=== PATIENT | male | born 1990 ===

== ENCOUNTER 2024-09-20 01:22 | Inpatient (IN) | payer OTHER, SELFPAY ==
[2024-09-19 22:26] VITALS: BP 128/90
[2024-09-19 22:37] VITALS: BP 136/78
--- NOTE | 2024-09-19 22:43 | ED.GENMED ---
History of Present Illness
<ROSA Pate - Last Filed: 09/20/24 02:00>
General
Chief Complaint: Chest Pain
Source: patient
Exam Limitations: none
Time Seen by Provider: 09/19/24 22:31
History of Present Illness
History of Present Illness:
This is a 34 year old male that comes in with c/o chest pain. States that 2 weeks ago he had this tightness in his chest. States that this lasted for hours and then went away. States that last night he had some chest discomfort but he fell asleep.
Then today he was watching the [employer] game and he started to feel tightness in his chest that went up to his shoulder and back. States that there is a tightness now that is a 2/10. States that it almost feels musculoskeletal. States that in the past
6 months he gets dizzy when running up the steps when he reaches the top. Denies any fever, chills, SOB, cough, abd pain, nausea, vomiting, diarrhea, headache, dizziness, urinary burning.
Past History
<ROSA Pate - Last Filed: 09/20/24 02:00>
Past History
ED Past Medical History: None; Negative Asthma, HTN, Hypercholesterolemia or NIDDM
ED Past Surgical History: Orthopedic (Left ACL and Meniscus repair, ) and Tonsilectomy
Social History
Tobacco: Other (Cigar occasionally)
Alcohol: Occasional
Drug: Marijuana (once or twice a year)
Personal:
Living: with family
Review of Systems
<ROSA Pate - Last Filed: 09/20/24 02:00>
Review of Systems
All Other Systems: ROS reviewed and negative except as documented in HPI and ROS
Constitutional: Reports no symptoms; Denies fever or chills
EENT: Reports no symptoms
Respiratory: Reports no symptoms; Denies cough or trouble breathing
Cardiac: Reports chest pain
ABD/GI: Reports no symptoms; Denies abdominal pain, nausea, vomiting or diarrhea
: Reports no symptoms; Denies dysuria, frequency or urgency
Musculoskeletal: Reports no symptoms
Skin: Reports no symptoms
Neurological: Denies dizzy or headache
Psychiatric: Reports no symptoms
Phy Exam
<ROSA Pate - Last Filed: 09/20/24 02:00>
General Physical Exam
General Presentation: well appearing and no apparent distress
General age: appears stated age
General Skin: warm and dry
General Habitus: normal
General Mental: alert
General Hydration: appears well hydrated
ENT Exam
ENT Exam: TM's normal, pharynx normal and neck supple
Eye Exam
Eye Exam: EOMI
Cardiovascular Exam
Cardiovascular Exam: regular rate/rhythm, no edema, no murmur and normal peripheral pulses
Pulmonary Exam
Pulmonary Exam: lungs clear, no respiratory distress, no rales, chest non tender, no crackles, no rhonchi, no wheezing and no cough
Gastrointestinal Exam
Gastrointestinal Exam: normal bowel sounds, soft, no organomegaly, no pulsatile mass, non distended and tender (Slight RUQ tenderness only with palpation)
Musculoskeletal Exam
Musculoskeletal Exam: full ROM and no edema
Skin Exam
Skin Exam: normal color, warm/dry, no rash and no petechia
Psychiatric Exam
Psychiatric Exam: normal mood/affect
Scores
<ROSA Pate - Last Filed: 09/20/24 02:00>
Heart Score for Chest Pain Patients
STEMI patient?: No
History: Moderately Suspicious
ECG: Normal
Age: </= 45 years
Risk Factors: No Risk Factors
Troponin: >1 - <3 x Normal Limit
Heart Score for Chest Pain Patients: 2
Heart Score Risk: 2.5% MACE over next 6 weeks
<Julianne Alcantar MD - Last Filed: 09/20/24 01:36>
Heart Score for Chest Pain Patients
Heart Score for Chest Pain Patients: 2
Heart Score Risk: 2.5% MACE over next 6 weeks
Course
<ROSA Pate - Last Filed: 09/20/24 02:00>
Orders/Labs/Results
Orders:
Orders
09/19/24 22:23
Electrocardiogram (*1) Urgent
Reason for Study: Chest Pain
EKG- Treatment ONCE
09/19/24 22:41
Aspirin Chewable [Low Strength Aspirin] 324 mg PO NOW STA
CR Chest - 2 Views Urgent
Comment:
Reason For Exam: Chest pain
09/19/24 23:06
EKG- Treatment ONCE
09/19/24 23:11
Complete Blood Count/With Diff Urgent
Comprehensive Metabolic Panel Urgent
Troponin I Urgent
09/19/24 23:55
Nitroglycerin Sublingual [Nitrostat (Sublingual)] 0.4 mg SL [id number] PRN
09/20/24 00:23
Heparin 4,000 units IV NOW STA
Nursing to Place Non Medication Order As Directed
Physician Order: PTT 6 hours after initial start of Heparin infusion
09/20/24 00:29
PTT Urgent
Comment: Obtain baseline before beginning heparin infusion if not already collected
09/20/24 00:30
Heparin 90687 Units/250 ml 25,000 units in 250 ml IV PER PROTOCOL
Weight to be used for heparin protocol in kilograms (kg):: 82.8
Protocol:: Cardiac Tx/Acute Coronary
PTT Goal Range to be used:: PTT 73 to 111 seconds
Order type:: Initial
INITIAL Infusion Dose (UNITS/KG/hr) & then follow protocol:: 15 units/kg/hr
Infusion Dose in UNITS/hr & then follow protocol (UNITS/hr):: 1,250
INFUSION RATE in mL/hr & then follow protocol (mL/hr):: 12.5
PTT less than or equal to 64 seconds:: Increase rate by 200 units/hr (+ 2 mL/hr)
PTT 64.1 to 72.9 seconds:: Increase rate by 100 units/hr (+ 1 mL/hr)
PTT 73 to 111 seconds:: Target Range. No change in rate.
PTT 111.1 to 130.9 seconds:: Decrease rate by 100 units/hr (- 1 mL/hr)
PTT 131 to 199.9 seconds:: HOLD for 1 hr. Then decrease rate by 200 units/hr (- 2 mL/hr)
PTT greater than or equal to 200 seconds:: HOLD for 2 hrs & Notify Provider. Then decrease by 200 units/hr (-
2 mL/hr)
Lab follow-up:: Each change, PTT q6h until 2 consecutive are therapeutic. Then PTT
daily.
09/20/24 00:47
Consult Cardiology [CARDIOLOGY CONSULT] Urgent
Consulting Provider: Arnold Meyer
Was physician already notified: Yes
09/20/24 00:51
Nitroglycerin 100 mg/250 ml [Nitroglycerin Premix] 100 mg in 250 ml IV NOW
Initial dose in mcg/min, then titrate:: 5
Titrate to keep:: Chest Pain Free
Titrate by mcg/min:: 5 mcg/min, may increase by 10 mcg/min if dose > 20 mcg/min
Frequency of titrations (minutes):: every 3-5 minutes
Maximum dose in mcg/min:: 200
Begin to taper infusion when:: Remained at goal for 2hrs
Taper by mcg/min:: 5 mcg/min
Frequency of taper (minutes) if patient maintains goal:: 30
Taper to off?: Yes
If infusion off & no longer maintaining goal:: Contact Provider
09/20/24 01:00
Flush (0.9% Sodium Chloride) [Flush (Nss)] See Dose Instructions IV PER PROTOCOL
09/20/24 01:11
Admit/Transfer Patient As Directed
Co-Sign Provider:
Level of Care: Inpatient admission
Assign to:: IVU
Physician / Group: hospitalist
Diagnosis: NSTEMI
Reason for Hospitalization: Chest pain w/NSTEMI
Expected length of stay greater than two midnights?: Yes
ELOS- Estimated Length of Stay in days: 2
I certify the patient meets the requirements for IP care: Yes
PRN Pain Medication Management As Directed
May give lesser potent ordered pain med per pt: Yes
preference::
Protocol:: Medication orders for pain may be administered in a
manner that supports deferring to patient preference
when the pt is:
- Requesting an ordered lesser potent pain medication.
Least to most potent pain medications are defined
as: acetaminophen < NSAID < tramadol < opioids
(morphine, oxycodone, hydromorphone).
- Requesting a lesser dose of the same medication IF
ORDERED.
- Requesting a less intrusive route of administration
if both routes are prescribed by the provider (PO <
IV).
09/20/24 01:13
Code Status As Directed
Resuscitation Status: Full Code
09/20/24 01:15
Troponin I Urgent
09/20/24 01:20
Electrocardiogram (*1) Urgent
Reason for Study: Chest Pain
Other Reason for Exam: Repeat with Troponin
09/20/24 01:53
Acetaminophen [Tylenol] 650 mg PO Q6HPRN PRN
Ondansetron Injectable [Zofran] 4 mg IV Q6HPRN PRN
09/20/24 01:53
Echo 2D MMode Color/Doppler Routine
Reason for Study: chest pain
VTE Contraindication Routine
VTE Mechanical Device Contraindication: Medical Contraindication
Pharmocologic Contraindication: Medical Contraindication
Heparin Protocol- PTT Orders As Directed
PTT per Heparin protocol: -Obtain CBC and baseline PTT - if not already collected.
-Obtain PTT 6 hours from start of infusion. Then, every 6 hours until 2 consecutive
PTT's are therapeutic. Then, PTT Daily.
-With each rate change, obtain PTT every 6 hours until 2 consecutive PTT's are
therapeutic. Then, PTT Daily.
Activity As Directed
Activity Level: With Assistance
INT (Intravenous Needle Therapy) As Directed
Comment: maintain peripheral IV access
Intake/ Output As Directed
Frequency: Per unit guidelines
Notify MD As Directed
Notify physician if: PTT is greater than or equal to 200.
Vital Signs As Directed
Frequency: q4h
Weight As Directed
Frequency: Once
O2 Therapy [RESP] Routine
Nasal Cannula Liter Flow: 2 LPM
Titrate/Wean O2 to maintain O2 sat greater than (%): 90
Special Instructions: 2 liters/minute as needed for pulse oximetry less than 90%
Pulse Ox/spot Check [RESP] Routine
Quantity: 1
Special Instructions: on admission and then every shift if on oxygen
09/20/24 04:00
Electrocardiogram (*1) Q3H
Reason for Study: Chest Pain
Comment: at admission and Q3H for total of 3, to be done with each troponin
Troponin I Q3H
Comment: at admit & Q3H for 3 total including ED draws, obtain ECG with each level
09/20/24 Breakfast
NPO
Allow oral meds: Yes
Allow clear liquids: Sips of Clears
Basic Metabolic Panel IN AM
Cardiovascular Evaluation IN AM
Glycohemoglobin (HgbA1c) IN AM
09/20/24 07:00
Electrocardiogram (*1) Q3H
Reason for Study: Chest Pain
Comment: at admission and Q3H for total of 3, to be done with each troponin
Troponin I Q3H
Comment: at admit & Q3H for 3 total including ED draws, obtain ECG with each level
09/20/24 10:00
Electrocardiogram (*1) Q3H
Reason for Study: Chest Pain
Comment: at admission and Q3H for total of 3, to be done with each troponin
09/20/24 13:00
Electrocardiogram (*1) Q3H
Reason for Study: Chest Pain
Comment: at admission and Q3H for total of 3, to be done with each troponin
09/20/24 16:00
Electrocardiogram (*1) Q3H
Reason for Study: Chest Pain
Comment: at admission and Q3H for total of 3, to be done with each troponin
09/20/24 19:00
Electrocardiogram (*1) Q3H
Reason for Study: Chest Pain
Comment: at admission and Q3H for total of 3, to be done with each troponin
09/20/24 22:00
Electrocardiogram (*1) Q3H
Reason for Study: Chest Pain
Comment: at admission and Q3H for total of 3, to be done with each troponin
09/22/24 06:00
Complete Blood Count/No Diff Q2D
Comment: notify provider: Platelet count < 130,000 or decrease by 50% from baseline
09/24/24 06:00
Complete Blood Count/No Diff Q2D
Comment: notify provider: Platelet count < 130,000 or decrease by 50% from baseline
09/26/24 06:00
Complete Blood Count/No Diff Q2D
Comment: notify provider: Platelet count < 130,000 or decrease by 50% from baseline
09/28/24 06:00
Complete Blood Count/No Diff Q2D
Comment: notify provider: Platelet count < 130,000 or decrease by 50% from baseline
09/30/24 06:00
Complete Blood Count/No Diff Q2D
Comment: notify provider: Platelet count < 130,000 or decrease by 50% from baseline
10/02/24 06:00
Complete Blood Count/No Diff Q2D
Comment: notify provider: Platelet count < 130,000 or decrease by 50% from baseline
10/04/24 06:00
Complete Blood Count/No Diff Q2D
Comment: notify provider: Platelet count < 130,000 or decrease by 50% from baseline
10/06/24 06:00
Complete Blood Count/No Diff Q2D
Comment: notify provider: Platelet count < 130,000 or decrease by 50% from baseline
Abnormal Lab Results
09/19/24 09/20/24
23:11 01:15
MCH 26.5 L pg
(27.0-31.0)
MCHC 32.4 L g/dL
(33.0-37.0)
BUN 21 H mg/dl
(9-20)
Glucose 109 H mg/dl
(70-99)
Troponin I 0.038 H* ng/ml 0.038 H* ng/ml
09/19/24 23:11
09/19/24 23:11
Very slight Dehydration. glucose nonfasting. Troponin elevated 0.038,
Repeat Troponin 0.038, PTT 31.6
Vital Signs
Initial and Last Documented VS:
Initial Vital Signs
Temp Pulse Resp BP Pulse Ox
98.1 F 72 18 128/90 98
09/19/24 22:26 09/19/24 22:26 09/19/24 22:26 09/19/24 22:26 09/19/24 22:26
Last Documented Vital Signs
Temp Pulse Resp BP Pulse Ox
98.1 F 69 15 117/83 99
09/19/24 22:26 09/20/24 01:30 09/20/24 01:30 09/20/24 01:30 09/20/24 01:30
<Julianne Alcantar MD - Last Filed: 09/20/24 01:36>
Orders/Labs/Results
Orders:
Orders
09/19/24 22:23
Electrocardiogram (*1) Urgent
Reason for Study: Chest Pain
EKG- Treatment ONCE
09/19/24 22:41
Aspirin Chewable [Low Strength Aspirin] 324 mg PO NOW STA
CR Chest - 2 Views Urgent
Comment:
Reason For Exam: Chest pain
09/19/24 23:06
EKG- Treatment ONCE
09/19/24 23:11
Complete Blood Count/With Diff Urgent
Comprehensive Metabolic Panel Urgent
Troponin I Urgent
09/19/24 23:55
Nitroglycerin Sublingual [Nitrostat (Sublingual)] 0.4 mg SL [id number] PRN
09/20/24 00:23
Heparin 4,000 units IV NOW STA
Nursing to Place Non Medication Order As Directed
Physician Order: PTT 6 hours after initial start of Heparin infusion
09/20/24 00:29
PTT Urgent
Comment: Obtain baseline before beginning heparin infusion if not already collected
09/20/24 00:30
Heparin 73410 Units/250 ml 25,000 units in 250 ml IV PER PROTOCOL
Weight to be used for heparin protocol in kilograms (kg):: 82.8
Protocol:: Cardiac Tx/Acute Coronary
PTT Goal Range to be used:: PTT 73 to 111 seconds
Order type:: Initial
INITIAL Infusion Dose (UNITS/KG/hr) & then follow protocol:: 15 units/kg/hr
Infusion Dose in UNITS/hr & then follow protocol (UNITS/hr):: 1,250
INFUSION RATE in mL/hr & then follow protocol (mL/hr):: 12.5
PTT less than or equal to 64 seconds:: Increase rate by 200 units/hr (+ 2 mL/hr)
PTT 64.1 to 72.9 seconds:: Increase rate by 100 units/hr (+ 1 mL/hr)
PTT 73 to 111 seconds:: Target Range. No change in rate.
PTT 111.1 to 130.9 seconds:: Decrease rate by 100 units/hr (- 1 mL/hr)
PTT 131 to 199.9 seconds:: HOLD for 1 hr. Then decrease rate by 200 units/hr (- 2 mL/hr)
PTT greater than or equal to 200 seconds:: HOLD for 2 hrs & Notify Provider. Then decrease by 200 units/hr (-
2 mL/hr)
Lab follow-up:: Each change, PTT q6h until 2 consecutive are therapeutic. Then PTT
daily.
09/20/24 00:47
Consult Cardiology [CARDIOLOGY CONSULT] Urgent
Consulting Provider: Arnold Meyer
Was physician already notified: Yes
09/20/24 00:51
Nitroglycerin 100 mg/250 ml [Nitroglycerin Premix] 100 mg in 250 ml IV NOW
Initial dose in mcg/min, then titrate:: 5
Titrate to keep:: Chest Pain Free
Titrate by mcg/min:: 5 mcg/min, may increase by 10 mcg/min if dose > 20 mcg/min
Frequency of titrations (minutes):: every 3-5 minutes
Maximum dose in mcg/min:: 200
Begin to taper infusion when:: Remained at goal for 2hrs
Taper by mcg/min:: 5 mcg/min
Frequency of taper (minutes) if patient maintains goal:: 30
Taper to off?: Yes
If infusion off & no longer maintaining goal:: Contact Provider
09/20/24 01:00
Flush (0.9% Sodium Chloride) [Flush (Nss)] See Dose Instructions IV PER PROTOCOL
09/20/24 01:11
Admit/Transfer Patient As Directed
Co-Sign Provider:
Level of Care: Inpatient admission
Assign to:: IVU
Physician / Group: hospitalist
Diagnosis: NSTEMI
Reason for Hospitalization: Chest pain w/NSTEMI
Expected length of stay greater than two midnights?: Yes
ELOS- Estimated Length of Stay in days: 2
I certify the patient meets the requirements for IP care: Yes
PRN Pain Medication Management As Directed
May give lesser potent ordered pain med per pt: Yes
preference::
Protocol:: Medication orders for pain may be administered in a
manner that supports deferring to patient preference
when the pt is:
- Requesting an ordered lesser potent pain medication.
Least to most potent pain medications are defined
as: acetaminophen < NSAID < tramadol < opioids
(morphine, oxycodone, hydromorphone).
- Requesting a lesser dose of the same medication IF
ORDERED.
- Requesting a less intrusive route of administration
if both routes are prescribed by the provider (PO <
IV).
09/20/24 01:13
Code Status As Directed
Resuscitation Status: Full Code
09/20/24 01:15
Troponin I Urgent
09/20/24 01:20
Electrocardiogram (*1) Urgent
Reason for Study: Chest Pain
Other Reason for Exam: Repeat with Troponin
09/20/24 01:53
Acetaminophen [Tylenol] 650 mg PO Q6HPRN PRN
Ondansetron Injectable [Zofran] 4 mg IV Q6HPRN PRN
09/20/24 01:53
Echo 2D MMode Color/Doppler Routine
Reason for Study: chest pain
VTE Contraindication Routine
VTE Mechanical Device Contraindication: Medical Contraindication
Pharmocologic Contraindication: Medical Contraindication
Heparin Protocol- PTT Orders As Directed
PTT per Heparin protocol: -Obtain CBC and baseline PTT - if not already collected.
-Obtain PTT 6 hours from start of infusion. Then, every 6 hours until 2 consecutive
PTT's are therapeutic. Then, PTT Daily.
-With each rate change, obtain PTT every 6 hours until 2 consecutive PTT's are
therapeutic. Then, PTT Daily.
Activity As Directed
Activity Level: With Assistance
INT (Intravenous Needle Therapy) As Directed
Comment: maintain peripheral IV access
Intake/ Output As Directed
Frequency: Per unit guidelines
Notify MD As Directed
Notify physician if: PTT is greater than or equal to 200.
Vital Signs As Directed
Frequency: q4h
Weight As Directed
Frequency: Once
O2 Therapy [RESP] Routine
Nasal Cannula Liter Flow: 2 LPM
Titrate/Wean O2 to maintain O2 sat greater than (%): 90
Special Instructions: 2 liters/minute as needed for pulse oximetry less than 90%
Pulse Ox/spot Check [RESP] Routine
Quantity: 1
Special Instructions: on admission and then every shift if on oxygen
09/20/24 04:00
Electrocardiogram (*1) Q3H
Reason for Study: Chest Pain
Comment: at admission and Q3H for total of 3, to be done with each troponin
Troponin I Q3H
Comment: at admit & Q3H for 3 total including ED draws, obtain ECG with each level
09/20/24 Breakfast
NPO
Allow oral meds: Yes
Allow clear liquids: Sips of Clears
Basic Metabolic Panel IN AM
Cardiovascular Evaluation IN AM
Glycohemoglobin (HgbA1c) IN AM
09/20/24 07:00
Electrocardiogram (*1) Q3H
Reason for Study: Chest Pain
Comment: at admission and Q3H for total of 3, to be done with each troponin
Troponin I Q3H
Comment: at admit & Q3H for 3 total including ED draws, obtain ECG with each level
09/20/24 10:00
Electrocardiogram (*1) Q3H
Reason for Study: Chest Pain
Comment: at admission and Q3H for total of 3, to be done with each troponin
09/20/24 13:00
Electrocardiogram (*1) Q3H
Reason for Study: Chest Pain
Comment: at admission and Q3H for total of 3, to be done with each troponin
09/20/24 16:00
Electrocardiogram (*1) Q3H
Reason for Study: Chest Pain
Comment: at admission and Q3H for total of 3, to be done with each troponin
09/20/24 19:00
Electrocardiogram (*1) Q3H
Reason for Study: Chest Pain
Comment: at admission and Q3H for total of 3, to be done with each troponin
09/20/24 22:00
Electrocardiogram (*1) Q3H
Reason for Study: Chest Pain
Comment: at admission and Q3H for total of 3, to be done with each troponin
09/22/24 06:00
Complete Blood Count/No Diff Q2D
Comment: notify provider: Platelet count < 130,000 or decrease by 50% from baseline
09/24/24 06:00
Complete Blood Count/No Diff Q2D
Comment: notify provider: Platelet count < 130,000 or decrease by 50% from baseline
09/26/24 06:00
Complete Blood Count/No Diff Q2D
Comment: notify provider: Platelet count < 130,000 or decrease by 50% from baseline
09/28/24 06:00
Complete Blood Count/No Diff Q2D
Comment: notify provider: Platelet count < 130,000 or decrease by 50% from baseline
09/30/24 06:00
Complete Blood Count/No Diff Q2D
Comment: notify provider: Platelet count < 130,000 or decrease by 50% from baseline
10/02/24 06:00
Complete Blood Count/No Diff Q2D
Comment: notify provider: Platelet count < 130,000 or decrease by 50% from baseline
10/04/24 06:00
Complete Blood Count/No Diff Q2D
Comment: notify provider: Platelet count < 130,000 or decrease by 50% from baseline
10/06/24 06:00
Complete Blood Count/No Diff Q2D
Comment: notify provider: Platelet count < 130,000 or decrease by 50% from baseline
Abnormal Lab Results
09/19/24 09/20/24
23:11 01:15
MCH 26.5 L pg
(27.0-31.0)
MCHC 32.4 L g/dL
(33.0-37.0)
BUN 21 H mg/dl
(9-20)
Glucose 109 H mg/dl
(70-99)
Troponin I 0.038 H* ng/ml 0.038 H* ng/ml
09/19/24 23:11
09/19/24 23:11
Vital Signs
Initial and Last Documented VS:
Initial Vital Signs
Temp Pulse Resp BP Pulse Ox
98.1 F 72 18 128/90 98
09/19/24 22:26 09/19/24 22:26 09/19/24 22:26 09/19/24 22:26 09/19/24 22:26
Last Documented Vital Signs
Temp Pulse Resp BP Pulse Ox
98.1 F 69 15 117/83 99
09/19/24 22:26 09/20/24 01:30 09/20/24 01:30 09/20/24 01:30 09/20/24 01:30
<ROSA Pate - Last Filed: 09/20/24 02:00>
MDM/Problems Addressed
Differential Diagnosis Includes:
coronary syndrome. Anxiety, PE, Costochondritis,
MDM/Problems Addressed:
This is a 34 year old male that comes in with c/o chest pain in the left upper chest that goes into the shoulder and back. States that he had this about 2 weeks ago and it was a tightness and lasted hours. States that last night he also had this
discomfort when he was going to bed and he went to sleep. Tonight he started with the pain when he was watching the [employer] game and it was stressful.
Will check labs, chest x-ray, Give Aspirin.
Back into see patient. Patient states that his pain had increased since we last spoke and he mentioned this to Dr. Alcantar. Will repeat ECG and give Nitro to see if this take patient pain away. Explained to patient that he will be admitted.
Repeat ECG: rate 75, NSR, right axis. QRS normal. Checked by Dr. Alcantar
Into see patient. Patient after three Nitro continued with pain and now states again that it is a 2. However, he said that his pain was a 2/10 at the beginning and at this time felt it was a lot less. Message sent to Dr Rob. Meyer along with
ECG.
Will place patent on Nitro to get pain free.
Patient is now pain free. Dr. Horn and Dr. Santos notified.
Chronic conditions affecting care:
NA
Acute Exacerbation and/or Progression of Chronic Illness:
NA
<ROSA Pate - Last Filed: 09/20/24 02:00>
*Radiology
Radiology exam reviewed: preliminary read by ED provider (Chest- negative for active disease)
*Pulse Oximetry
Patient hypoxic: no
*EKG
Interpreted by ED Provider?: Yes
Heart Rate: 78
Rate: normal
Rhythm: sinus
[place]: right axis deviation
Interval: normal interval
QRS Pattern: normal QRS
*Pharmacy Services Director Interpretation
Rate: normal
Heart Rate: 80
Rhythm: sinus
*Critical Care Note
Total Time (30-74mins, 75-104mins- exclusive of procedures): Not Applicable
ED Attending Note
<ROSA Pate - Last Filed: 09/20/24 02:00>
-
Portions of this chart may have been created with voice recognition software.� Occasional wrong word or��sound alike� substitutions may have occurred due to the inherent limitations of voice recognition software.
<Julianne Alcantar MD - Last Filed: 09/20/24 01:36>
ED Attending Note
Patient seen and examined by attending physician: Yes
I performed the substantive portion of visit, reviewed & personally made and approve the management plan that is documented in note by myself or ZAK.: Yes
ED Attending Note:
34-year-old male was watching the football game describes it as very stressful and started to feel his heart beating fast associated with chest discomfort that then started to radiate to his left shoulder and back area. The pain persists although
it was better upon arrival here. He denies associated nausea, vomiting, diaphoresis, dyspnea, headache, dizziness, fever, chills, cough, or other complaints. On exam, heart regular rate and rhythm, patient extremely well-appearing nontoxic. He
still reports pain at this time. Is not pleuritic in nature and he does not appear dyspneic or in any respiratory distress. Lungs CTA. ECG unremarkable, chest x-ray unremarkable. Full workup via labs pending however low clinical suspicion for
emergent etiology such as ACS, PE, dissection, PTX, etc. etc.
Patient's first troponin noted to be elevated. Pain continues although low level. Repeat ECG unchanged. Patient given nitroglycerin x 3 initially with some relief of pain but now it is at a 2 out of 10. Nitroglycerin drip ordered, heparin drip
ordered. Patient was given aspirin early in his visit. Concern for unstable angina, cardiology consulted Dr. Meyer� Aware of history physical etc. Recommend continued efforts to get patient to be pain-free, will update him shortly
Discharge Plan
Departure
Patient Disposition: Admit
Date of Disposition: 09/20/24
Time of Disposition: 00:07
Admit to: IVU
Presentation/result/management discussed w/ accepting MD/DO: Hospitalist
Patient with high blood pressure during this ER visit?: Yes
Condition: Good
Discharge Problem:
Chest pain, Elevated troponin
Interventions
Interventions:
*Risk Screen - Suicide Last Done: 09/19/24 22:26
*General Assessment Last Done: 09/19/24 22:26
*Neglect/Abuse Screening Last Done: 09/19/24 22:26
ED- Fall Risk Assessment Last Done: 09/19/24 23:27
*ED COVID-19 Vaccine History Last Done: 09/19/24 22:26
ED- Cardiac Assessment Last Done: 09/19/24 23:26
[2024-09-19] MEDS: LOW STRENGTH ASPIRIN 324 MG PO (23:13)
[2024-09-19 23:24] LABS: % Basophils 0.3 % (0-2); % Eosinophils 3.5 % (0-6); % Immature Granulocytes 0.3 % (0-0.5); % Lymphocytes 35.4 % (20.5-51.1); % Monocytes 7.7 % (1.7-9.3); % Neutrophils 52.8 % (42.2-75.2); Absolute Eosinophils 0.2 10^3/uL (0-0.7); Absolute Monocytes 0.4 10^3/uL (0.1-0.6); Hematocrit 40.7 % (39.0-52.0); Hemoglobin 13.2 g/dL (13.0-18.0); Mean Corp Hgb Conc. 32.4 g/dL (33.0-37.0); Mean Corpuscular Hgb 26.5 pg (27.0-31.0); Mean Corpuscular Volume 81.6 fL (80.0-94.0); Mean Platelet Volume 10.3 fL (7.4-10.4); Nucleated Red Blood Cells % 0 % (-); Platelet Count 204 10^3/uL (130-400); Red Blood Cell Count 4.99 10^6/uL (4.70-6.10); Red Cell Dist. Width 13.3 % (11.5-14.5); White Blood Cell Count 5.7 10^3/uL (4.8-10.8)
[2024-09-19 23:37] LABS: ALT (SGPT) 24 U/L (0-50); AST (SGOT) 32 U/L (17-59); Albumin 4.6 g/dl (3.5-5.0); Alkaline Phosphatase 58 U/L (38-126); Blood Urea Nitrogen 21 mg/dl (9-20); Calcium 9.2 mg/dl (8.4-10.2); Carbon Dioxide 27 mmol/L (22-30); Chloride 102 mmol/L (98-107); Glucose 109 mg/dl (70-99); Potassium 4.5 mmol/L (3.5-5.1); Sodium 139 mmol/L (135-145); Total Bilirubin 0.4 mg/dl (0.2-1.3); Total Protein 7.7 g/dl (6.3-8.2); eGFR > 60.00
[2024-09-19 23:53] LABS: Troponin I 0.038 ng/ml
[2024-09-20] VITALS (32 sets, daily range): BP systolic 114–146; BP diastolic 72–91; BMI 25.5
[2024-09-20] MEDS: NITROSTAT (SUBLINGUAL) 0.4 MG SL ×3 (00:06→00:20)
--- NOTE | 2024-09-20 01:01 | HPS.HSE ---
Family Physician
-
Family Physician: Ashu Chawla
Chief Complaint
-
chest pain
History of Present Illness
34-year-old male with no known significant past medical history presents to the emergency department with episode of chest pain that started at around 5:45 PM today.
Patient reported that the onset of pain coincided with excitement following the football game. He jumped up to celebrate the end of the game when he started feeling substernal chest pressure that started radiating to his left shoulder and back. He
reported the pain was around 2 out of 10 right time he arrived in the emergency department. I do feel that the patient is minimizing the degree of pain. He denied any diaphoresis. He denies any nausea or vomiting.
Patient reported that he had a similar episode about 2 weeks ago but was unable to provide specific details about that episode ordered and it was memorable for him. He reported that the previous evening prior to coming to the ED today he did have
an episode of chest pain that was fleeting while he was laying in bed and did mention this to his spouse.
Patient report prior episode several months ago of palpitations with walking up a flight of stairs with associated lightheadedness.
Patient denies any other symptoms otherwise. He states that he is generally active but has been sidelined partially due to a ACL injury suffered 2 years ago and he is just finished rehab. Patient reported that he started cycling as part of his
rehabilitation measures and he had recently finished her training. He he reports family history of CAD in grandparents. Diabetes in cousins and grandparents. He does not know of any specific cholesterol diseases. He denies history of sudden
at young age in the family. He denies any history of known arrhythmias.
In the emergency department he was afebrile, blood pressure was 120/80 with a pulse of 71. ECG shows normal sinus rhythm at a rate of 78 with incomplete right bundle. There is a slight J-point elevation in leads V3. Initial troponin was 0.038.
His chest x-ray was clear. CBC electrolytes BUN/creatinine were all within the normal range. Patient reported that after receiving nitroglycerin his pain went from a 2 to a 1 but then returned to slightly below the 2.
Dr. Meyer has been informed and EKG provided.
Medical History
Past Medical History
Past Medical History: Reports None
Past Surgical History: Reports Orthopedic (Left ACL repair)
Social History
Tobacco: Smoker (Occasional cigar smoker)
Alcohol: Occasional
Drug: None
Personal:
Living: With Family
Employment: Employed
Family History
Family History: Not pertinent
Allergies / Home Medications
Allergies reflects when Allergies were last updated in [facility].
Home Medications with original date entered in [employer]
Allergy/Medication List:
Allergies
Allergy/AdvReac Type Severity Reaction Status Date / Time
Penicillins Allergy Unknown Verified 09/19/24 22:23
No home medications
Review of Systems
-
History Source: Patient
Constitutional: Reports No Symptoms
EENT: Reports No Symptoms
Respiratory: Reports No Symptoms
Cardiac: Reports Chest Pain
Abdomen/GI: Reports No Symptoms
: Reports No Symptoms
Musculoskeletal: Reports No Symptoms
Skin: Reports No Symptoms
Neurological: Reports No Symptoms
Endocrine: Reports No Symptoms
Hematologic/Lymphatic: Reports No Symptoms
Psych: Reports No Symptoms
Physical Exam
Vital Signs
Vital Signs
Temp Pulse Resp BP Pulse Ox
98.1 F 78 12 123/84 100
09/19/24 22:26 09/20/24 00:20 09/20/24 00:15 09/20/24 00:25 09/20/24 00:20
Physical Exam
General: Well Developed, Well Nourished and Comfortable
HEENT: NormoCephalic, Anicteric, Moist mucous membranes, Atraumatic and No Ptosis
Respiratory: Clear and Non Labored Respirations; No Wheezes, Rales, Rhonchi or Crackles
Cardiac: S1/S2 and Regular Rhythm
Breast: Deferred by me
GI: Soft, Non Tender, Non Distended and Normal Bowel Sounds
Rectal: Deferred by Provider
Genito-urinary: Deferred by me
Musculoskeletal: No Clubbing, No Cyanosis and No Edema
Skin: Warm
Neuro: AO x 3 and Nonfocal/grossly intact
Hematologic/Lymphatic: No Lymphadenopathy
Psych: Calm
Laboratory Results
-
09/19/24 23:11
09/19/24 23:11
Laboratory Results
Total Bilirubin 0.4 mg/dl (0.2-1.3) 09/19/24 23:11
AST 32 U/L (17-59) 09/19/24 23:11
ALT 24 U/L (0-50) 09/19/24 23:11
Alkaline Phosphatase 58 U/L (38-126) 09/19/24 23:11
Troponin I 0.038 ng/ml H* 09/19/24 23:11
Data Reviewed
-
Diagnostic Radiology: Image Personally Visualized and interpreted
Medical Tests (Nuc Med, Echo, EKG etc): Image Personally Visualized and interpreted
Lab Data: Labs Reviewed by me
Old Records: Reviewed
Impression/Plan
-
IMPRESSION:
34 years old with no known personal risk factors presenting to the emergency department with episode of substernal chest pain that radiates to the left arm that started at around 5:45 PM during the excitement of the end of the football game.
Possibly had similar short duration episodes in the last 2 weeks. Reports family history of CAD in grandparents. Family history of diabetes and hypertension. No family history of sudden . ECG is nonischemic. Troponin was elevated at 0.038.
Patient's pain was improved with nitroglycerin. Some URI symptoms that sound like allergies but no acute bronchitis, pneumonia or pleural disease on history or imaging.
PLAN:
Chest Pain - NSTEMI. Possibly obstructive CAD vs HOCM vs prinzemetal (less likely).
- admit to IVU
- aspirin 324 x 1
- start heparin gtt
- ntg prn cp, if recurrent will place on ntg gtt and inform cards
- npo for now, likely cath today
- check a1c, lipid panel, esr.
- echo
- cardiology consultation
Code status - full code
--- NOTE | 2024-09-20 01:06 | EDRN ---
Spoke w/ the lab regarding pending PTT as sample was sent at 00:29 and has yet to be resulted. senior technical trainer. reports specimen is currently spinning, RN to await these results before able to start ordered heparin gtt per protocol.
[2024-09-20 01:13] LABS: APTT 31.6 Sec (23.4-35.0)
[2024-09-20] MEDS: NITROGLYCERIN PREMIX 250 IV (01:27)
[2024-09-20] MEDS: HEPARIN 4000 UNITS IV (01:30)
[2024-09-20] MEDS: HEPARIN 25000 UNITS/250 ML IV (01:30)
[2024-09-20 01:48] LABS: Troponin I 0.038 ng/ml
--- NOTE | 2024-09-20 02:10 | EDRN ---
Pt. states, 'I sometimes feel like maybe there is a little something there, but I am pretty sure it's actually gone at this point. I am moving myself around to see if it comes back, but I don't feel it'. Admitting aware pt. now chest pain free, per
admitting, RN to keep pt. on nitro. gtt. at current rate overnight along w/ heparin infusion.
[2024-09-20] MEDS: TYLENOL 650 MG PO (04:12)
[2024-09-20 04:59] LABS: Troponin I 0.019 ng/ml
[2024-09-20 05:18] LABS: Blood Urea Nitrogen 20 mg/dl (9-20); Carbon Dioxide 26 mmol/L (22-30); Chloride 104 mmol/L (98-107); Estimated Creatinine Clearance 110 ml/min; Glucose 98 mg/dl (70-99); HDL Cholesterol 60 mg/dl; LDL Cholesterol, Calculated 109 mg/dl; Potassium 3.9 mmol/L (3.5-5.1); Sodium 140 mmol/L (135-145); Total Cholesterol 178 mg/dl (50-199); Triglyceride 47 mg/dl (10-149); Very Low Density Lipoprotein 9 mg/dl (0-30); eGFR > 60.00
--- NOTE | 2024-09-20 07:56 | CON.CAR ---
Addendum entered and electronically signed by Juan Hart MD 09/22/24 19:06:
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
quarter of the [employer] game yesterday had left-sided chest tightness, worse with positional change and deep breath, presented to the emergency department with troponin of 0.038. Minimal lateral T wave changes. Rare cigars, not much alcohol,
PMH/PSH: Left ACL 2012, shoulder surgery 2018
SH rare cigars on weekends, occasional alcohol
FH: Negative for premature CAD
Outpatient meds: As needed naproxen
Rest of history per below.
117/80, head neck exam unremarkable, lungs are clear, normal cardiac exam, abdomen benign extremities without edema, pulses intact, neuro nonfocal
EKG sinus rhythm/bradycardia with right axis deviation and first-degree AV block
Impression:
Chest discomfort
Detectable troponin, suspect non-ACS myocardial injury versus chronic low-grade troponin elevation
Plan:
His risk profile is low, his symptoms have a pleuritic components, in general his level of fitness is very high, and hence the likelihood that this is a ACS is extremely low. We we will proceed with stress echocardiography.
Is unclear why he has right axis deviation. Preliminary report of his echo was essentially normal.
His symptoms could be pericardial. Since there could be a pleuritic component I will check a D-dimer.
If he is feeling well, I would probably not begin treatment with nonsteroidals, colchicine, etc. but would simply have him follow-up to the office.
Original Note:
Consultation
Consultation Request
Date/Time Consultation Requested: 09/19/2024
Date/Time Consultation Performed: 09/20/2024
Requesting Provider: ROSA Augustine
Performing Provider: Nishi Newton PA-C for
Reason for Consultation: Chest pain
Medical History
-
History of Present Illness:
Patient is a 34-year-old male with no significant past medical history with exception of orthopedic surgeries who presents to emergency department 09/19/2024 with complaints of chest discomfort. Patient reports he was watching the [employer] game and
towards the end of the game it became very stressful when he developed left-sided chest pain radiating towards his shoulder and back. He reports he had had similar symptoms 2 weeks prior but cannot remember the exact details except that it was
brief and less severe. Given reoccurrence of his symptoms and pain not subsiding he decided to seek emergency medical attention. Chest x-ray showed no acute cardiopulmonary abnormality. Troponins were 0.038, 0.038, 0.019. EKG showed sinus rhythm
without ischemic changes. Patient was provided sublingual nitroglycerin x 3 with improvement of symptoms but not complete resolution. He was then placed on nitroglycerin drip and heparin drip and became chest pain-free. At time of this evaluation
patient remained chest pain-free but complains of significant headache not improved with Tylenol.
Past medical history:
Dislocated left shoulder status post shoulder surgery 2018
Left knee s/p ACL, lateral meniscus and medial meniscus repair May 2023
Costochondritis
Chronic low back pain
Past Medical History
Past Medical History: Other (see HPI)
Past Surgical History: Orthopedic (status post shoulder surgery 2018, Left knee s/p ACL, lateral meniscus and medial meniscus repair May 2023) and Tonsilectomy
Social History
Tobacco: Smoker (occasional cigars on weekends )
Alcohol: Occasional (social on weekends)
Drug: None
Personal:
Living: With Family
Employment: Employed
Family History
Family History: Hypertension (father)
Allergies / Home Medications
Allergy/AdvReac Type Severity Reaction Status Date / Time
Penicillins Allergy Unknown Verified 09/19/24 22:23
�Medication �Instructions �Recorded �Confirmed �Type
naproxen sodium 220 mg tablet 220 mg PO BIDPRN PRN knee pains 09/20/24 09/20/24 History
(Graciela)
Review of Systems
-
History Source: Patient
All other systems: Negative unless noted
Physical Exam
Vital Signs
Temp Pulse Resp BP Pulse Ox
98.1 F 55 15 119/75 99
09/19/24 22:26 09/20/24 07:00 09/20/24 07:00 09/20/24 07:00 09/20/24 02:20
GEN: No distress, awake, Ox3
HEENT: supple, anicteric, mmm
LUNGS: CTA, no wheezes/rales
CV: Reg, S1/S2, no murmur, rub or gallops
ABD: soft, BS+, NT/ND
EXT: No edema, clubbing or cyanosis
NEURO: Gross non-focal
SKIN: No rash, warm, dry
Lab Results
09/19/24 23:11
09/20/24 04:18
Troponin I 0.019 ng/ml D 09/20/24 04:18
Impression / Plan
-
PCP: ROSA Torres
Wood Planer: None prior to arrival, VIMAL Hart initial consult
Impression:
Presents 09/20/2024 with chest pain radiating towards left shoulder and back
Abnormal troponin, peak 0.038
Dislocated left shoulder status post shoulder surgery 2018
Left knee s/p ACL, lateral meniscus and medial meniscus repair May 2023
Costochondritis
Chronic low back pain
Echo 09/20/2024: Pending
Stress echo 09/20/2024: Ordered
Plan:
-Presented 09/19/2024 with acute onset of chest pain radiating towards left shoulder and back
-EKG showed normal sinus rhythm with no ischemic changes. Chest x-ray unremarkable.
-Troponin peak 0.038 then trended down thereafter
-Some improvement with sublingual nitroglycerin, complete resolution on IV heparin and IV nitroglycerin. However patient has developed severe headache from nitroglycerin. Will stop nitroglycerin drip
-Echo pending. If no wall motion abnormalities or concerning findings on echo we will proceed with stress echocardiogram to rule out ischemia. If wall motion abnormality is noted or reduced EF then would consider catheterization
-Blood pressure controlled and not on any outpatient antihypertensive agents
-Lipids TC 178, HDL 60, LDL 109, triglycerides 47. Patient not on any statins.
Plan discussed with patient, ED nursing, cardiology
HPI 09/20/2024:
Patient is a 34-year-old male with no significant past medical history with exception of orthopedic surgeries who presents to emergency department 09/19/2024 with complaints of chest discomfort. Patient reports he was watching the [employer] game and
towards the end of the game it became very stressful when he developed left-sided chest pain radiating towards his shoulder and back. He reports he had had similar symptoms 2 weeks prior but cannot remember the exact details except that it was
brief and less severe. Given reoccurrence of his symptoms and pain not subsiding he decided to seek emergency medical attention. Chest x-ray showed no acute cardiopulmonary abnormality. Troponins were 0.038, 0.038, 0.019. EKG showed sinus rhythm
without ischemic changes. Patient was provided sublingual nitroglycerin x 3 with improvement of symptoms but not complete resolution. He was then placed on nitroglycerin drip and heparin drip and became chest pain-free. At time of this evaluation
patient remained chest pain-free but complains of significant headache not improved with Tylenol.
Data Reviewed
-
EKG: Report Reviewed by me, Discussed with Physician, Discussed with Nurse and Discussed with Patient
Radiology: Report Reviewed by me, Discussed with Physician, Discussed with Nurse and Discussed with Patient
Labs: Labs Reviewed by me, Discussed with Physician, Discussed with Nurse and Discussed with Patient
Old Records: Reviewed
--- NOTE | 2024-09-20 07:58 | W.PN.HOSP.TC ---
Addendum entered and electronically signed by Jose Burkett MD 09/20/24 21:58:
Attending Addendum:
I saw and evaluated the patient. I reviewed the resident�s note and agree with findings and plan as documented in the resident�s note. Sub: No further CP. Had mild H/A. No SOB syncope presyncope. Full 12 point ROS reviewed and negative except as
documented Exam: Vitals reviewed in chart GEN-NAD, heart RRR NO M/R/G, abd soft NT ND Lungs CTA B/L abd softg
# Atypical Chest Pain - NIMI
- aspirin 324 x 1 given
- was started on heparin and nitro gtt
- check a1c-5.7, lipid panel/LDL-109
- 09/20- stress test-Normal stress echo imaging. No evidence of ischemia.
Normal ST segment response to exercise
Good exercise tolerance
Normal systolic LV function at baseline, ejection fraction 65%
- trop trended down to normal
- EKG- personally reviewed first degree heart block
- cardiology input appreciated, ok for dc-f/u set up
Code status - full code
Time spent coordinating care, DC planning, review of DC plan of care with resident, transition of care, review of records, med rec/scripts sent electronically, consults, notes, d/w consultants/cards, nursing, family, and CM� 87 mins
Original Note:
Today's Communication/Plan
-
Stress test and echo today
If stable, discharge
Assessment / Plan
Assessment / Plan
Patient is a 34-year-old male presenting to [facility] after acute episode of chest pain last night
#Chest pain
EKG showed normal sinus rhythm with no ischemic changes
Chest x-ray negative
Troponin peaked at 0.038
Patient placed on IV heparin and nitroglycerin, now stopped
Echo showed normal ejection fraction, without evidence of ischemia
Blood pressure well-controlled without medication
Lipid panel negative
Follow-up outpatient with cardiology
Full code
Anticipated Discharge: Today
Subjective/Interval History
-
Date of Service: September 20, 2024
Patient is a 34-year-old male with no significant past medical history presenting to the ED after an acute event of chest pain while watching the [employer] game yesterday. He states he has had 1 episode of chest pain 2 weeks prior that resolved on its
own. He is physically active and is a balanced lifestyle. He has no family history of sudden cardiac but has family history of cholesterol, high blood pressure and A-fib. Overnight he reports no acute events other than headache from
nitroglycerin drip. He reports no chest pain, shortness of breath, nausea, vomiting or pain anywhere. At time of admission there was some concern of NSTEMI however decision was made to get echo stress test prior to discharge.
Objective Data
-
Labs:
Laboratory Results
09/19/24 09/20/24 09/20/24
23:11 00:29 04:18
WBC 5.7
Hgb 13.2
Hct 40.7
Plt Count 204
APTT 31.6
Sodium 139 140
Potassium 4.5 3.9
Chloride 102 104
Carbon Dioxide 27 26
BUN 21 H 20
Creatinine 1.1 1.0
Glucose 109 H 98
Calcium 9.2 9.0
Total Bilirubin 0.4
AST 32
ALT 24
Alkaline Phosphatase 58
09/20/24
07:30
WBC
Hgb
Hct
Plt Count
APTT Pending
Sodium
Potassium
Chloride
Carbon Dioxide
BUN
Creatinine
Glucose
Calcium
Total Bilirubin
AST
ALT
Alkaline Phosphatase
Vital Signs:
Vital Signs
Temp Pulse Resp BP Pulse Ox
98.1 F 55 15 119/75 99
09/19/24 22:26 09/20/24 07:00 09/20/24 07:00 09/20/24 07:00 09/20/24 02:20
Review of Systems
-
History Source: Patient
Constitutional: Reports No Symptoms
EENT: Reports No Symptoms Reported
Respiratory: Reports No Symptoms
Cardiac: Reports No Symptoms
Abdomen/GI: Reports No Symptoms
Genitourinary: Reports No Symptoms
Musculoskeletal: Reports No Symptoms
Neuro: Reports Headache
Physical Exam
-
General: Well Developed, Well Nourished, No Apparent Distress, Comfortable and Conversant
HEENT: Normocephalic and Atraumatic
Respiratory: Clear to Auscultation
Cardiac: Regular Rhythm and S1/S2
GI: Soft, Nontender, Nondistended and Normal Bowel Sounds
Musculoskeletal: No Clubbing, No Cyanosis and No Edema
Neuro: AO x 3
Psych: Calm
Data Reviewed
-
Diagnostic Radiology: Report Reviewed by me
Medical Tests (Nuc Med, Echo etc): Report Reviewed by me
Labs: Labs Reviewed by me and Discussed with Physician
Old Records: Reviewed
[2024-09-20 08:40] LABS: Troponin I < 0.012 ng/ml
[2024-09-20 08:59] LABS: APTT 186.7 Sec (23.4-35.0)
[2024-09-20 09:07] LABS: Glycohemoglobin (HgbA1c) 5.7 % (4.0-5.6)
--- NOTE | 2024-09-20 09:09 | EDRN ---
Due to PTT results, this RN went to stop heparin gtt per protocol. Gtt was already paused and patient states that Cardiology put it on standby when they re-visited him 15-20 minutes ago. This RN was not notified of the heparin being paused.
--- NOTE | 2024-09-20 12:20 | EDRN ---
Diet tray ordered at this time for pt and should be up brian 13:00 per engineering aide that this RN spoke w/.
--- NOTE | 2024-09-20 15:08 | CM ---
ED CM noted dc order
Pt left prior to CM meeting with him
Discussion with nursing and no dc needs noted
--- NOTE | 2024-09-20 17:29 | W.DCSUMMARY ---
Addendum entered and electronically signed by Jose Burkett MD 09/20/24 21:59:
Read, reviewed, and agree. See same day progress note for additional details. OP follow with cards. D/W Cards ok for DC, Patient was CP free on DC.
Stephen Burkett MD
Original Note:
Documented by User: Malu Weathers DO, Resident 09/20/24 17:38
Discharge Summary
Discharge Data
Date of Admission: 09/20/24
Date of Discharge: 09/20/24
Total time spent discharging patient (in min): 45
-
Pending Results: Yes
Additional Pending Results:
HbA1C
Hospital Course
Discharging Physician : Jose Burkett
Disposition : Home
Primary care physician : Ashu Chawla
Principal Discharge diagnosis : Chest Pain
Hospital Course : Patient is a 34-year-old male with no significant past medical history presenting to the ED after an acute event of chest pain while watching the [employer] game yesterday. He states he has had 1 episode of chest pain 2 weeks prior
that resolved on its own. He is physically active and is a balanced lifestyle. He has no family history of sudden cardiac but has family history of cholesterol, high blood pressure and A-fib. Overnight he reports no acute events other than
headache from nitroglycerin drip, which resolved after discontinuation. He reports no chest pain, shortness of breath, nausea, vomiting or pain anywhere. Patient underwent stress echocardiogram which showed no evidence of ischemia, normal ST
segment response to exercise, good exercise tolerance and normal systolic LV function at baseline with ejection fraction of 65%. His troponins peaked at 0.038 and began to trend down afterwards. Blood pressure was well-controlled in ED and at
home, without any antihypertensive agents. Patient stable for discharge home. Will follow-up in 4 weeks with cardiac AUTOMATIC BRINE MIXER OPERATOR.
#Chest [id number] with cardiac AUTOMATIC BRINE MIXER OPERATOR outpatient in 4 weeks
Important imaging findings :
Stress echocardiogram:
CONCLUSIONS
Normal stress echo imaging. No evidence of ischemia.
Normal ST segment response to exercise
Good exercise tolerance
Normal systolic LV function at baseline, ejection fraction 65%
This is a low risk stress test. There are no prior studies available for
comparison.
Echocardiogram:
CONCLUSIONS
Normal left ventricular size and systolic function. No regional wall motion
abnormalities are seen. LV ejection fraction is 70-75% by Murdock's method of
discs. Mild concentric left ventricular hypertrophy. Normal diastolic function.
Discharge Plan
-
Patient Disposition: Home (Routine Discharge)
Discharge Diagnosis/Procedures: chest pain
Condition: Good
Diet: No restrictions and As tolerated
Activity: No restrictions and As tolerated
Driving Restrictions: As prior to admission
Bathing Restrictions: None
Referrals:
Nishi Newton PA-C [Specified Professional Personl] - 10/26/24 7:40 am (You have cardiology follow-up with Nishi Newton PA-C on October 26 at 7:40 AM in [address] in the [place] which is located behind the hospital. If you are unable to make this
appointment please call [phone] to reschedule. )
Ashu Chawla CRNP [Family Provider] - in less than 1 week
Prescriptions:
Continued
naproxen sodium [Aleve] 220 mg Tablet
220 mg PO BIDPRN PRN (Reason: knee pain)
Discharge Orders:
Discharge Patient (As Directed); Ordered 09/20/24
Ordered By: Malu Weathers
Discharge Date and Time
Print Language: KAZAKH

Documented by User: Jose Burkett MD 09/20/24 21:47
Discharge Summary
Discharge Data
Date of Admission: 09/20/24
Date of Discharge: 09/20/24
Discharge Plan
-
Patient Disposition: Home (Routine Discharge)
Discharge Diagnosis/Procedures: chest pain
Condition: Good
Diet: No restrictions and As tolerated
Activity: No restrictions and As tolerated
Driving Restrictions: As prior to admission
Bathing Restrictions: None
Referrals:
Nishi Newton PA-C [Specified Professional Personl] - 10/26/24 7:40 am (You have cardiology follow-up with Nishi Newton PA-C on October 26 at 7:40 AM in [address] in [address] [facility] which is located behind the hospital. If you are unable to make this
appointment please call [phone] to reschedule. )
Ashu Chawla CRNP [Family Provider] - in less than 1 week
Prescriptions:
Continued
naproxen sodium [Aleve] 220 mg Tablet
220 mg PO BIDPRN PRN (Reason: knee pain)
Discharge Orders:
Discharge Patient (As Directed); Ordered 09/20/24
Ordered By: Malu Weathers
Discharge Date and Time
Print Language: KAZAKH
== END 2024-09-20 15:04 | disposition home or self-care (01) | DRG 313 ==
LOC: ED 01:22
PROVIDERS: Clinical Nurse Specialist Family Health; Emergency Medicine; ADMITTING PHYSICIAN Internal Medicine; ATTENDING PHYSICIAN Family Medicine; EMERGENCY PHYSICIAN Emergency Medicine; FAMILY PHYSICIAN Nurse Practitioner Adult Health; OTHER PHYSICIAN Internal Medicine Cardiovascular Disease
DX: R07.89 Other chest pain (principal); I5A Non-ischemic myocardial injury (non-traumatic); F17.290 Nicotine dependence, other tobacco product, uncomplicated; G89.29 Other chronic pain; M54.50 Low back pain, unspecified; Z82.49 Family history of ischemic heart disease and other diseases of the circulatory system; Z88.0 Allergy status to penicillin
CPT/HCPCS: 93017; 71046; 80048; 80053; 80061; 83036; 84484; 85025; 85730; 93005; 93320; 93325; 93350; 99285